=== PATIENT | male | born 1990 | race Caucasian/White ===

== ENCOUNTER 2022-05-10 20:46 | Inpatient (IN) | payer MEDICAID ==
[~2022-05-10] VITALS: Ht 170.2 cm; Wt 55.4 kg
[2022-05-10] MEDS ORDERED: HALOPERIDOL LACTATE 5 MG/ML VIAL IM ONE (22:00)
[2022-05-10] MEDS ORDERED: LORazepam 2 MG/ML VIAL IM ONE (22:00)
[2022-05-10] MEDS ORDERED: DiphenhydrAMINE HCL 50 MG/ML VIAL IM ONE (22:00)
[2022-05-11 02:24] LABS: COVID AG,FIA SOURCE NASAL SWAB
[2022-05-11] MEDS ORDERED: HALOPERIDOL 5 MG TABLET PO PRN (07:30)
[2022-05-11 10:08] VITALS: BP 109/69
[2022-05-11 16:07] VITALS: BP 116/57
[2022-05-11] MEDS ORDERED: DOCUSATE SODIUM 100 MG CAPSULE PO PRN (19:15)
[2022-05-11] MEDS ORDERED: ONDANSETRON HCL 4 MG TABLET PO PRN (19:15)
[2022-05-11] MEDS ORDERED: PETROLATUM,WHITE 28 GM JELLY TP PRN (19:15)
[2022-05-11] MEDS ORDERED: IBUPROFEN 600 MG TABLET PO PRN (19:15)
[2022-05-11] MEDS ORDERED: MAGNESIUM HYDROXIDE SUSPENSION 30 ML UDCUP PO PRN (19:15)
[2022-05-11] MEDS ORDERED: BENZOCAINE/MENTHOL LOZENGE PO PRN (19:15)
[2022-05-11] MEDS ORDERED: ACETAMINOPHEN 325 MG TABLET PO PRN (19:15)
[2022-05-11] MEDS ORDERED: BACITRACIN 28 GM OINTMENT TP PRN (19:15)
[2022-05-11] MEDS ORDERED: MAG HYDROX/AL HYDROX/SIMETH ES 30 ML SUSPENSION UDCUP PO PRN (19:15)
[2022-05-11] MEDS ORDERED: LOPERAMIDE HCL 2 MG CAPSULE PO PRN (19:15)
[2022-05-11] MEDS ORDERED: CloNIDine HCL 0.1 MG TABLET PO PRN (19:15)
[2022-05-11] MEDS ORDERED: ALBUTEROL SULFATE HFA 90 MCG/PUFF 8 GM INHALER IH PRN (19:15)
[2022-05-11] MEDS ORDERED: OMEPRAZOLE 20 MG CAPSULE PO PRN (19:15)
[2022-05-12] MEDS: DIVALPROEX SODIUM 500 MG DR TABLET PO SCH ×2 (08:09→19:43)
[2022-05-12] MEDS: RisperiDONE 3 MG TABLET PO SCH ×3 (08:09→18:10)
[2022-05-12 08:16] VITALS: BP 124/83
[2022-05-12 16:13] VITALS: BP 130/78
[2022-05-12] MEDS: LORazepam 2 MG TABLET PO PRN (18:02)
[2022-05-13] MEDS: RisperiDONE 3 MG TABLET PO SCH ×2 (09:50→17:41)
[2022-05-13] MEDS: DIVALPROEX SODIUM 500 MG DR TABLET PO SCH ×2 (09:50→20:30)
[2022-05-13 16:00] VITALS: BP 120/86
[2022-05-13] MEDS: ZOLPIDEM TARTRATE 10 MG TABLET PO PRN (20:30)
[2022-05-14] MEDS: DIVALPROEX SODIUM 500 MG DR TABLET PO SCH ×2 (08:27→20:24)
[2022-05-14] MEDS: RisperiDONE 3 MG TABLET PO SCH ×2 (08:27→16:46)
[2022-05-14 16:40] VITALS: BP 116/82
[2022-05-14 20:09] VITALS: BP 120/87
[2022-05-14] MEDS: ZOLPIDEM TARTRATE 10 MG TABLET PO PRN (20:25)
[2022-05-15] MEDS: DIVALPROEX SODIUM 500 MG DR TABLET PO SCH ×2 (08:10→20:18)
[2022-05-15] MEDS: RisperiDONE 3 MG TABLET PO SCH ×2 (08:10→16:34)
[2022-05-15 09:39] VITALS: BP 122/81
[2022-05-15 16:30] VITALS: BP 119/74
[2022-05-16] MEDS: RisperiDONE 3 MG TABLET PO SCH ×3 (08:36→16:53)
[2022-05-16] MEDS: DIVALPROEX SODIUM 500 MG DR TABLET PO SCH ×3 (08:36→20:29)
[2022-05-16 08:40] VITALS: BP 96/64
[2022-05-16 08:44] LABS: EOSINOPHILS % (AUTO) 1.9 % (1.0-6.0); HEMATOCRIT 41.2 % (41-53); LYMPHOCYTES # (AUTO) 1.3 K/uL (1.0-4.8); LYMPHOCYTES % (AUTO) 34.4 % (22.0-44.0); MEAN CORPUSCULAR HEMOGLOBIN 30.6 pg (26.0-34.0); MEAN CORPUSCULAR HGB CONC 33.9 G/dL (31.0-37.0); MEAN CORPUSCULAR VOLUME 90 fL (80-100); MONOCYTES # (AUTO) 0.2 K/uL (0.1-1.0); MONOCYTES % (AUTO) 6.1 % (2.0-9.0); NEUTROPHILS # (AUTO) 2.2 K/uL (1.8-7.7); NEUTROPHILS % (AUTO) 56.6 % (40.0-70.0); PLATELET COUNT (AUTO) 197 K/uL (150-450); RED BLOOD CELL COUNT(AUTO) 4.56 MIL/uL (4.50-5.90); RED CELL DISTRIBUTION WIDTH 14.1 % (11.5-14.5)
[2022-05-16 09:05] LABS: ALANINE AMINOTRANSFERASE 21 U/L (12-78); ALBUMIN 3.9 g/dL (3.4-5.0); ALKALINE PHOSPHATASE 68 U/L (46-116); ANION GAP 3 mmol/L (8-16); ASPARTATE AMINOTRANSFERASE 14 U/L (15-37); BILIRUBIN,TOTAL 0.4 mg/dL (0.1-1.0); CALCIUM, TOTAL 8.9 mg/dL (8.8-10.5); CARBON DIOXIDE 30 mmol/L (22-29); CHLORIDE 105 mmol/L (98-107); CREATININE 0.86 mg/dL (0.60-1.30); GLUCOSE,RANDOM 90 mg/dL (70-110); POTASSIUM 5.2 mmol/L (3.5-5.1); SODIUM SERUM 138 mmol/L (136-145); TOTAL PROTEIN, SERUM 7.3 g/dL (6.4-8.2); UREA NITROGEN, BLOOD 13 mg/dL (7-18)
[2022-05-16 09:16] LABS: GLOMERULAR FILTR. RATE CALC > 60 mL/min (>60)
[2022-05-16 16:43] VITALS: BP 99/70
[2022-05-17 01:15] LABS: COVID AG,FIA SOURCE NASAL SWAB
[2022-05-17] MEDS: ZOLPIDEM TARTRATE 10 MG TABLET PO PRN ×2 (02:14→21:42)
[2022-05-17 08:53] VITALS: BP 154/99
[2022-05-17] MEDS: DIVALPROEX SODIUM 500 MG DR TABLET PO SCH ×2 (09:00→20:50)
[2022-05-17] MEDS: RisperiDONE 3 MG TABLET PO SCH ×2 (09:00→15:37)
[2022-05-17] MEDS: NICOTINE 21 MG/24 HOUR PATCH TD PRN (15:32)
[2022-05-17 16:43] VITALS: BP 116/81
[2022-05-17 20:38] VITALS: BP 123/74
[2022-05-18] MEDS: DIVALPROEX SODIUM 500 MG DR TABLET PO SCH ×2 (09:00→20:19)
[2022-05-18] MEDS: RisperiDONE 3 MG TABLET PO SCH ×2 (09:00→17:00)
[2022-05-18 09:03] VITALS: BP 118/61
[2022-05-18 09:22] VITALS: BP 118/61
[2022-05-18] MEDS: NICOTINE 21 MG/24 HOUR PATCH TD PRN (15:32)
[2022-05-18 16:47] VITALS: BP 132/83
[2022-05-19 08:45] VITALS: BP 132/86
[2022-05-19] MEDS: RisperiDONE 3 MG TABLET PO SCH ×2 (09:00→17:25)
[2022-05-19] MEDS: DIVALPROEX SODIUM 500 MG DR TABLET PO SCH ×2 (09:00→20:08)
[2022-05-19] MEDS: NICOTINE 21 MG/24 HOUR PATCH TD PRN (12:11)
[2022-05-19] MEDS: LORazepam 2 MG TABLET PO PRN (14:40)
[2022-05-19 16:09] VITALS: BP 117/117
[2022-05-20 08:25] VITALS: BP 124/82
[2022-05-20] MEDS: RisperiDONE 3 MG TABLET PO SCH ×2 (09:01→18:57)
[2022-05-20] MEDS: DIVALPROEX SODIUM 500 MG DR TABLET PO SCH ×2 (09:01→20:53)
[2022-05-20] MEDS: NICOTINE 21 MG/24 HOUR PATCH TD PRN (09:19)
[2022-05-20 16:10] VITALS: BP 90/62
[2022-05-20] MEDS: ZOLPIDEM TARTRATE 10 MG TABLET PO PRN (20:18)
[2022-05-21] MEDS: LORazepam 2 MG TABLET PO PRN (01:19)
[2022-05-21 08:19] VITALS: BP 99/53
[2022-05-21] MEDS: DIVALPROEX SODIUM 500 MG DR TABLET PO SCH ×2 (10:34→21:04)
[2022-05-21] MEDS: RisperiDONE 3 MG TABLET PO SCH ×2 (10:34→18:39)
[2022-05-21 16:07] VITALS: BP 93/60
[2022-05-21] MEDS: NICOTINE 21 MG/24 HOUR PATCH TD PRN (18:38)
[2022-05-21] MEDS: ZOLPIDEM TARTRATE 10 MG TABLET PO PRN (20:19)
[2022-05-21] MEDS ORDERED: RISP3TAB63 PO (20:22)
[2022-05-21] MEDS ORDERED: DIVA-112 PO (20:22)
[2022-05-22] MEDS: RisperiDONE 3 MG TABLET PO SCH (08:52)
[2022-05-22] MEDS: DIVALPROEX SODIUM 500 MG DR TABLET PO SCH (08:52)
[2022-05-22] MEDS: NICOTINE 21 MG/24 HOUR PATCH TD PRN (15:35)
[2022-05-22 16:11] VITALS: BP 103/77
== END 2022-05-22 17:00 | disposition home or self-care (01) | DRG 750 ==
LOC: EMS 20:51 → 3EC 05-11 08:09
PROVIDERS: ADMIT Psychiatry & Neurology Psychiatry; ATTEND Psychiatry & Neurology Psychiatry
PROC: 2W3JX1Z Immobilization of Right Finger using Splint (ICD-10-PCS; principal; 2022-05-11)
DX: F20.9 Schizophrenia, unspecified (principal); F10.10 Alcohol abuse, uncomplicated; F32.A Depression, unspecified; F41.9 Anxiety disorder, unspecified; G47.00 Insomnia, unspecified; K59.00 Constipation, unspecified; Z53.20 Procedure and treatment not carried out because of patient's decision for unspecified reasons; S62.306A Unspecified fracture of fifth metacarpal bone, right hand, initial encounter for closed fracture; X58.XXXA Exposure to other specified factors, initial encounter; Z78.1 Physical restraint status; Z87.891 Personal history of nicotine dependence; Y93.89 Activity, other specified; Y92.89 Other specified places as the place of occurrence of the external cause; Y99.8 Other external cause status
CPT/HCPCS: 80053; 84132; 85025; 99285; J1200; J1630; J2060

== ENCOUNTER 2022-06-05 08:26 | Inpatient (IN) | payer MEDICAID ==
[~2022-06-05] VITALS: Ht 167.6 cm; Wt 58.1 kg
[~2022-06-05 08:26] MED LIST: DIVA-112 PO; RISP3TAB63 PO
[2022-06-05] MEDS ORDERED: OLAN10TA74 PO (10:39)
[2022-06-05 10:46] LABS: BASOPHILS % (AUTO) 0.6 % (0.0-2.0); EOSINOPHILS % (AUTO) 0.5 % (1.0-6.0); HEMOGLOBIN 12.8 g/dL (13.5-17.5); LYMPHOCYTES # (AUTO) 1.5 K/uL (1.0-4.8); LYMPHOCYTES % (AUTO) 14.5 % (22.0-44.0); MEAN CORPUSCULAR HEMOGLOBIN 30.7 pg (26.0-34.0); MEAN CORPUSCULAR HGB CONC 33.6 G/dL (31.0-37.0); MEAN CORPUSCULAR VOLUME 92 fL (80-100); MONOCYTES # (AUTO) 0.5 K/uL (0.1-1.0); MONOCYTES % (AUTO) 5.1 % (2.0-9.0); NEUTROPHILS # (AUTO) 8.2 K/uL (1.8-7.7); NEUTROPHILS % (AUTO) 79.3 % (40.0-70.0); PLATELET COUNT (AUTO) 258 K/uL (150-450); RED BLOOD CELL COUNT(AUTO) 4.15 MIL/uL (4.50-5.90); RED CELL DISTRIBUTION WIDTH 14.7 % (11.5-14.5)
[2022-06-05 11:22] LABS: ALANINE AMINOTRANSFERASE 21 U/L (12-78); ALBUMIN 3.9 g/dL (3.4-5.0); ALKALINE PHOSPHATASE 88 U/L (46-116); ASPARTATE AMINOTRANSFERASE 15 U/L (15-37); BILIRUBIN,TOTAL 0.2 mg/dL (0.1-1.0); CALCIUM, TOTAL 8.3 mg/dL (8.8-10.5); CARBON DIOXIDE 27 mmol/L (22-29); CREATININE 0.75 mg/dL (0.60-1.30); GLUCOSE,RANDOM 94 mg/dL (70-110); TOTAL PROTEIN, SERUM 7.4 g/dL (6.4-8.2); UREA NITROGEN, BLOOD 12 mg/dL (7-18)
[2022-06-05 11:27] LABS: ANION GAP 8 mmol/L (8-16); CHLORIDE 106 mmol/L (98-107); GLOMERULAR FILTR. RATE CALC > 60 mL/min (>60); POTASSIUM 4.1 mmol/L (3.5-5.1); SODIUM SERUM 141 mmol/L (136-145)
[2022-06-05 11:30] LABS: AMPHET/METH SCREEN,URINE NEGATIVE (NEGATIVE); BARBITURATE SCREEN, URINE NEGATIVE (NEGATIVE); BENZODIAZEPINES SCREEN,URINE NEGATIVE (NEGATIVE); CANNABINOID SCREEN,URINE POSITIVE (NEGATIVE); COCAINE SCREEN,URINE NEGATIVE (NEGATIVE); METHADONE SCREEN, URINE NEGATIVE (NEGATIVE); OPIATE SCREEN,URINE NEGATIVE (NEGATIVE); PHENCYCLIDINE SCREEN,URINE NEGATIVE (NEGATIVE)
[2022-06-05] MEDS ORDERED: LORazepam 2 MG TABLET PO PRN (13:45)
[2022-06-05] MEDS ORDERED: HALOPERIDOL 5 MG TABLET PO PRN (13:45)
[2022-06-05 15:36] LABS: COVID AG,FIA SOURCE NASAL SWAB
[2022-06-05] MEDS ORDERED: INFLUENZA VIRUS VACCINE QVS 2022-23 (6MO+)/PF 60 MCG/0.5 ML SYRINGE IM. ONE (20:30)
[2022-06-05 20:36] VITALS: BP 103/71
[2022-06-06] MEDS: ZOLPIDEM TARTRATE 10 MG TABLET PO PRN ×2 (00:32→20:20)
[2022-06-06] MEDS ORDERED: OMEPRAZOLE 20 MG CAPSULE PO PRN (05:00)
[2022-06-06] MEDS ORDERED: IBUPROFEN 600 MG TABLET PO PRN (05:00)
[2022-06-06] MEDS ORDERED: ALBUTEROL SULFATE HFA 90 MCG/PUFF 8 GM INHALER IH PRN (05:00)
[2022-06-06] MEDS ORDERED: BACITRACIN 28 GM OINTMENT TP PRN (05:00)
[2022-06-06] MEDS ORDERED: DOCUSATE SODIUM 100 MG CAPSULE PO PRN (05:00)
[2022-06-06] MEDS ORDERED: BENZOCAINE/MENTHOL LOZENGE PO PRN (05:00)
[2022-06-06] MEDS ORDERED: MAGNESIUM HYDROXIDE SUSPENSION 30 ML UDCUP PO PRN (05:00)
[2022-06-06] MEDS ORDERED: ACETAMINOPHEN 325 MG TABLET PO PRN (05:00)
[2022-06-06] MEDS ORDERED: CloNIDine HCL 0.1 MG TABLET PO PRN (05:00)
[2022-06-06] MEDS ORDERED: PETROLATUM,WHITE 28 GM JELLY TP PRN (05:00)
[2022-06-06] MEDS ORDERED: LOPERAMIDE HCL 2 MG CAPSULE PO PRN (05:00)
[2022-06-06] MEDS ORDERED: ONDANSETRON HCL 4 MG TABLET PO PRN (05:00)
[2022-06-06] MEDS ORDERED: MAG HYDROX/AL HYDROX/SIMETH ES 30 ML SUSPENSION UDCUP PO PRN (05:00)
[2022-06-06 08:19] VITALS: BP 132/73
[2022-06-06] MEDS: RisperiDONE 2 MG TABLET PO SCH ×2 (09:55→20:20)
[2022-06-06] MEDS: DIVALPROEX SODIUM 500 MG DR TABLET PO SCH ×2 (09:55→20:20)
[2022-06-06] MEDS: NICOTINE POLACRILEX 4 MG LOZENGE PO PRN (16:26)
[2022-06-06 20:18] VITALS: BP 108/69
[2022-06-07 08:41] VITALS: BP 100/65
[2022-06-07] MEDS: RisperiDONE 2 MG TABLET PO SCH ×2 (09:00→20:12)
[2022-06-07] MEDS: DIVALPROEX SODIUM 500 MG DR TABLET PO SCH ×2 (09:00→20:12)
[2022-06-07] MEDS: NICOTINE POLACRILEX 4 MG LOZENGE PO PRN ×2 (15:26→21:08)
[2022-06-07 20:27] VITALS: BP 108/59
[2022-06-07] MEDS: ZOLPIDEM TARTRATE 10 MG TABLET PO PRN (22:08)
[2022-06-08 08:42] VITALS: BP 110/68
[2022-06-08] MEDS: RisperiDONE 2 MG TABLET PO SCH ×2 (09:31→21:14)
[2022-06-08] MEDS: DIVALPROEX SODIUM 500 MG DR TABLET PO SCH ×2 (09:31→21:14)
[2022-06-08] MEDS: NICOTINE POLACRILEX 4 MG LOZENGE PO PRN (17:22)
[2022-06-08 21:48] VITALS: BP 110/68
[2022-06-09] MEDS: RisperiDONE 2 MG TABLET PO SCH (08:12)
[2022-06-09] MEDS: DIVALPROEX SODIUM 500 MG DR TABLET PO SCH (08:12)
[2022-06-09 08:42] VITALS: BP 120/61
[2022-06-09] MEDS ORDERED: DIVA-112 PO (10:37)
[2022-06-09] MEDS ORDERED: RISP2TAB86 PO (10:37)
== END 2022-06-09 15:03 | disposition home or self-care (01) | DRG 750 ==
LOC: EMS 08:29 → B3A 16:02
PROVIDERS: ADMIT Psychiatry & Neurology Psychiatry; ATTEND Psychiatry & Neurology Psychiatry
DX: F20.0 Paranoid schizophrenia (principal); F10.10 Alcohol abuse, uncomplicated; G47.00 Insomnia, unspecified; K59.00 Constipation, unspecified; F32.A Depression, unspecified; Z20.822 Contact with and (suspected) exposure to COVID-19; Z79.899 Other long term (current) drug therapy; Z87.891 Personal history of nicotine dependence
CPT/HCPCS: 80053; 80307; 85025; 87081; 99285; G0480; Q9967